=== PATIENT | male | born 1945 | race Hispanic/Latino ===

== ENCOUNTER 2017-11-19 00:01 | Emergency (ER) | payer MEDICARE ==
[~2017-11-19] VITALS: Ht 165.1 cm; Wt 114.8 kg
[~2017-11-19 00:01] MED LIST: GLIPIZIDE5 MG PO; LOSARTAN POTASS25 MG PO; METFORMIN HCL500 MG PO; METOPROLOL SUCC25 MG PO; NITROSTAT0.4 MG SL; SIMVASTATIN40 MG PO
[2017-11-19 00:40] LABS: BASOPHILS % 0.3 % (0.0-1.0); EOSINOPHILS # (AUTO) 0.4 (0.0-0.4); EOSINOPHILS % 3.6 % (0.0-6.0); HEMATOCRIT 43.8 % (38.2-49.6); HEMOGLOBIN 15.3 g/dL (14.0-18.0); LYMPHOCYTES # (AUTO) 1.7 (1.0-3.2); LYMPHOCYTES % 17.9 % (18.0-39.1); MEAN CORPUSCULAR HEMOGLOBIN 30.1 pg (28-32); MEAN CORPUSCULAR HGB CONC 34.9 g/dL (31-35); MEAN CORPUSCULAR VOLUME 86.1 fL (81-99); MONOCYTES % 10.2 % (4.4-11.3); NEUTROPHILS # (AUTO) 6.6 (2.1-6.9); NEUTROPHILS % 67.5 % (38.7-80.0); PLATELET COUNT 222 x10e3/uL (140-360); RED BLOOD COUNT 5.09 x10e6/uL (4.3-5.7); RED CELL DISTRIBUTION WIDTH 12.7 % (11.7-14.4)
[2017-11-19 00:47] LABS: CLARITY,URINE CLEAR (CLEAR); COLOR,URINE YELLOW (YELLOW)
[2017-11-19 00:48] LABS: BILIRUBIN,URINE NEGATIVE (NEGATIVE); KETONES,URINE NEGATIVE (NEGATIVE); LEUKOCYTE ESTERASE ,URINE NEGATIVE (NEGATIVE); NITRITE,URINE NEGATIVE (NEGATIVE); PROTEIN,URINE DIPSTICK TRACE (NEGATIVE); URINE UROBILINOGEN 0.2 mg/dL (0.2 - 1)
[2017-11-19 00:55] LABS: BACTERIA,URINE RARE /HPF; EPITHELIAL CELLS,URINE RARE /LPF; WBC,URINE (MAN) 0-5 /HPF (0-5)
[2017-11-19 01:04] LABS: ALANINE AMINOTRANSFERASE 19 IU/L (0-55); ALBUMIN 3.5 g/dL (3.5-5.0); BLOOD UREA NITROGEN 14 mg/dL (7-26); BUN/CREATININE RATIO 16 (6-25); CALCIUM 9.9 mg/dL (8.4-10.2); CARBON DIOXIDE 25 mmol/L (22-29); EST GLOMERULAR FILTRATION RATE > 60 ML/MIN (60-); GLUCOSE 305 mg/dL (74-118)
--- NOTE | 2017-11-19 01:06 | Diagnostic Imaging Report ---
EXAM: CHEST SINGLE (PORTABLE), AP 1 view INDICATION: Weakness, pain in arms and COMPARISON: None FINDINGS: LINES/TUBES: None LUNGS: Nonspecific interstitial thickening and bibasilar atelectasis. PLEURA: No effusions or pneumothorax. HEART AND MEDIASTINUM: Normal size and contour. BONES AND SOFT TISSUES: No acute findings. IMPRESSION: Nonspecific interstitial thickening and bibasilar atelectasis. Signed by: Dr. Aniya Kelly M.D. on 11/19/2017 1:02 AM
[2017-11-19 01:20] LABS: ANION GAP 14.9 mmol/L (8-16); CHLORIDE 102 mmol/L (98-107); POTASSIUM 3.9 mmol/L (3.5-5.1); SODIUM 138 mmol/L (136-145)
[2017-11-19 01:56] VITALS: BP 105/79
[2017-11-19 02:16] LABS: ALKALINE PHOSPHATASE 85 IU/L (40-150); CREATINE KINASE 73 IU/L (30-200)
== END 2017-11-19 02:09 | disposition home or self-care (01) ==
LOC: ER 00:01
DX: R53.1 Weakness (principal); R73.9 Hyperglycemia, unspecified; F41.9 Anxiety disorder, unspecified; E78.00 Pure hypercholesterolemia, unspecified
CPT/HCPCS: 36415; 71045; 80053; 81001; 82550; 82553; 84484; 85025; 93005; 99284

== ENCOUNTER 2020-04-06 15:21 | Inpatient (IN) | payer MEDICARE ==
[~2020-04-06] VITALS: Ht 162.6 cm; Wt 114.8 kg
[2020-04-06] MEDS ORDERED: LACTATED RINGER'S 1,000 ML INJ ONE ×2 (16:00)
[2020-04-06 16:32] LABS: BASOPHILS % 0.2 % (0.0-1.0); EOSINOPHILS # (AUTO) 0.1 (0.0-0.4); EOSINOPHILS % 1.3 % (0.0-6.0); HEMATOCRIT 37.1 % (38.2-49.6); HEMOGLOBIN 11.8 g/dL (14.0-18.0); LYMPHOCYTES # (AUTO) 0.7 (1.0-3.2); LYMPHOCYTES % 7.5 % (18.0-39.1); MEAN CORPUSCULAR HGB CONC 31.8 g/dL (31-35); MEAN CORPUSCULAR VOLUME 84.9 fL (81-99); MONOCYTES # (AUTO) 0.8 (0.2-0.8); MONOCYTES % 9.3 % (4.4-11.3); NEUTROPHILS # (AUTO) 7.4 (2.1-6.9); NEUTROPHILS % 81.4 % (38.7-80.0); PLATELET COUNT 370 x10e3/uL (140-360); RED BLOOD COUNT 4.37 x10e6/uL (4.3-5.7); RED CELL DISTRIBUTION WIDTH 15.3 % (11.7-14.4)
[2020-04-06 16:49] LABS: ALBUMIN 2.8 g/dL (3.5-5.0); ALBUMIN/GLOBULIN RATIO 0.6 (0.8-2.0); ANION GAP 14.4 mmol/L (8-16); CALCIUM 8.8 mg/dL (8.4-10.2); CREATININE, SERUM 1.42 mg/dL (0.72-1.25); POTASSIUM 4.4 mmol/L (3.5-5.1)
[2020-04-06 17:13] LABS: CLARITY,URINE SL CLOUDY (CLEAR); COLOR,URINE YELLOW (YELLOW); LEUKOCYTE ESTERASE ,URINE NEGATIVE (NEGATIVE); NITRITE,URINE NEGATIVE (NEGATIVE); PROTEIN,URINE DIPSTICK >=300 (NEGATIVE)
[2020-04-06 17:14] LABS: KETONES,URINE TRACE (NEGATIVE)
[2020-04-06 17:22] LABS: AMORPHOUS SEDIMENT,URINE MODERATE (FEW); BACTERIA,URINE FEW /HPF; EPITHELIAL CELLS,URINE FEW /LPF
[2020-04-06] MEDS ORDERED: CEFEPIME HCL 1 GM VIAL IV STA (20:17)
[2020-04-06 21:30] VITALS: BP 105/77
[2020-04-06 23:14] VITALS: BP 105/77
[2020-04-07] VITALS (8 sets, daily range): BP systolic 87–144; BP diastolic 59–126
[2020-04-07 05:42] LABS: CREATINE KINASE MB 1.8 ng/mL (0-5.0)
[2020-04-07] MEDS ORDERED: DOCUSATE SODIUM 100 MG CAP PO PRN (06:30)
[2020-04-07] MEDS ORDERED: ACETAMINOPHEN 325 MG TAB PO PRN (06:30)
[2020-04-07] MEDS ORDERED: ZOLPIDEM TARTRATE 5 MG TAB PO PRN (06:30)
[2020-04-07] MEDS ORDERED: DEXTROSE 50% SYRINGE 50 ML IV PRN (06:30)
[2020-04-07] MEDS ORDERED: ONDANSETRON HCL INJ 2MG/ML 2ML 2 MG/ML VIAL IV PRN (06:30)
[2020-04-07 07:17] LABS: CHOL/HDL RATIO 2.9 (3.9-4.7)
[2020-04-07] MEDS: INSULIN REGULAR, HUMAN 100 UNIT/1 ML 3ML VIAL SQ SCH ×4 (07:30→20:42)
[2020-04-07] MEDS: FAMOTIDINE 20 MG TAB PO SCH ×2 (08:04→15:45)
[2020-04-07] MEDS: BENZONATATE 100 MG CAP PO SCH ×3 (08:06→19:54)
[2020-04-07] MEDS: METOPROLOL SUCCINATE 25 MG TAB XL PO SCH (08:08)
[2020-04-07] MEDS ORDERED: CEFEPIME 1GM/NS 0.9% 50 ML 50 ML IV SCH (09:00)
[2020-04-07] MEDS: METHYLPREDNISOLONE SOD SUCC 40 MG/ML VIAL 1ML IV SCH ×2 (09:58→19:54)
[2020-04-07] MEDS: LORATADINE 10 MG TAB PO SCH (09:58)
[2020-04-07] MEDS: ZINC SULFATE 220 MG CAP PO SCH (09:58)
[2020-04-07] MEDS: ENOXAPARIN SOD INJ 40 MG/0.4 ML SYR SC SCH (09:58)
[2020-04-07] MEDS: ASCORBIC ACID 500 MG TAB PO SCH ×2 (09:58→17:17)
[2020-04-07] MEDS ORDERED: CEFTRIAXONE SOD 2 GM/NS 100 ML 100 ML IV SCH (11:00)
[2020-04-07 14:20] LABS: CREATINE KINASE 62 IU/L (30-200)
[2020-04-07] MEDS: GUAIFENESIN/DEXTROMETHORPHAN LIQD 5 ML UDC NG SCH ×2 (14:51→19:54)
[2020-04-07] MEDS: CEFTRIAXONE SOD 2 GM/NS 100 ML 100 ML IV SCH (15:45)
[2020-04-07] MEDS ORDERED: ENOXAPARIN SOD INJ 40 MG/0.4 ML SYR SC SCH (17:00)
[2020-04-07] MEDS: SIMVASTATIN 40 MG TAB PO SCH (19:54)
[2020-04-08] VITALS (8 sets, daily range): BP systolic 90–109; BP diastolic 55–78
[2020-04-08 05:19] LABS: BASOPHILS % 0.2 % (0.0-1.0); HEMATOCRIT 31.8 % (38.2-49.6); HEMOGLOBIN 10.3 g/dL (14.0-18.0); LYMPHOCYTES # (AUTO) 0.5 (1.0-3.2); LYMPHOCYTES % 5.2 % (18.0-39.1); MEAN CORPUSCULAR HEMOGLOBIN 26.6 pg (28-32); MEAN CORPUSCULAR HGB CONC 32.4 g/dL (31-35); MEAN CORPUSCULAR VOLUME 82.2 fL (81-99); MONOCYTES # (AUTO) 0.2 (0.2-0.8); MONOCYTES % 2.6 % (4.4-11.3); NEUTROPHILS # (AUTO) 7.9 (2.1-6.9); NEUTROPHILS % 91.5 % (38.7-80.0); PLATELET COUNT 314 x10e3/uL (140-360); RED BLOOD COUNT 3.87 x10e6/uL (4.3-5.7)
[2020-04-08 05:52] LABS: ALANINE AMINOTRANSFERASE 10 IU/L (0-55); ALBUMIN 2.4 g/dL (3.5-5.0); ALBUMIN/GLOBULIN RATIO 0.6 (0.8-2.0); ALKALINE PHOSPHATASE 82 IU/L (40-150); BLOOD UREA NITROGEN 25 mg/dL (7-26); BUN/CREATININE RATIO 22 (6-25); CALCIUM 8.3 mg/dL (8.4-10.2); CARBON DIOXIDE 24 mmol/L (22-29); CHLORIDE 101 mmol/L (98-107); CREATININE, SERUM 1.14 mg/dL (0.72-1.25); EST GLOMERULAR FILTRATION RATE > 60 ML/MIN (60-); GLUCOSE 147 mg/dL (74-118); SODIUM 135 mmol/L (136-145)
[2020-04-08] MEDS: METOPROLOL SUCCINATE 25 MG TAB XL PO SCH (07:23)
[2020-04-08] MEDS: GUAIFENESIN/DEXTROMETHORPHAN LIQD 5 ML UDC NG SCH ×3 (07:24→22:00)
[2020-04-08] MEDS: INSULIN REGULAR, HUMAN 100 UNIT/1 ML 3ML VIAL SQ SCH ×4 (07:52→20:16)
[2020-04-08 07:57] LABS: BAND NEUTROPHILS % (MANUAL) 2 %; LYMPHOCYTES % (MANUAL) 5 % (19-48); MONOCYTES % (MANUAL) 4 % (3.4-9.0); NEUTROPHILS % (MANUAL) 89 % (40-74)
[2020-04-08 07:58] LABS: SCHISTOCYTES FEW
[2020-04-08 07:59] LABS: ELLIPTOCYTE, RBC FEW; PLATELET ESTIMATE ADEQUATE; PLATELET MORPHOLOGY COMMENT NORMAL; RBC MORPHOLOGY COMMENT ABNORMAL
[2020-04-08] MEDS: BENZONATATE 100 MG CAP PO SCH ×3 (08:30→20:14)
[2020-04-08] MEDS: ASCORBIC ACID 500 MG TAB PO SCH ×2 (08:30→16:46)
[2020-04-08] MEDS: METHYLPREDNISOLONE SOD SUCC 40 MG/ML VIAL 1ML IV SCH ×2 (08:30→20:13)
[2020-04-08] MEDS: ENOXAPARIN SOD INJ 40 MG/0.4 ML SYR SC SCH (08:30)
[2020-04-08] MEDS: LORATADINE 10 MG TAB PO SCH (08:30)
[2020-04-08] MEDS: FAMOTIDINE 20 MG TAB PO SCH ×2 (08:30→16:46)
[2020-04-08] MEDS: ZINC SULFATE 220 MG CAP PO SCH (08:30)
[2020-04-08] MEDS: CEFTRIAXONE SOD 2 GM/NS 100 ML 100 ML IV SCH (16:46)
[2020-04-08] MEDS: SIMVASTATIN 40 MG TAB PO SCH (20:14)
[2020-04-09] VITALS: BP 108/70
[2020-04-09 04:00] VITALS: BP 106/66
[2020-04-09] MEDS: GUAIFENESIN/DEXTROMETHORPHAN LIQD 5 ML UDC NG SCH (06:00)
[2020-04-09] MEDS: INSULIN REGULAR, HUMAN 100 UNIT/1 ML 3ML VIAL SQ SCH (07:51)
[2020-04-09 08:00] VITALS: BP 114/79
[2020-04-09] MEDS: LORATADINE 10 MG TAB PO SCH (08:06)
[2020-04-09] MEDS: FAMOTIDINE 20 MG TAB PO SCH (08:06)
[2020-04-09] MEDS: ZINC SULFATE 220 MG CAP PO SCH (08:06)
[2020-04-09] MEDS: ENOXAPARIN SOD INJ 40 MG/0.4 ML SYR SC SCH (08:06)
[2020-04-09] MEDS: METOPROLOL SUCCINATE 25 MG TAB XL PO SCH (08:06)
[2020-04-09] MEDS: BENZONATATE 100 MG CAP PO SCH (08:06)
[2020-04-09] MEDS: ASCORBIC ACID 500 MG TAB PO SCH (08:06)
[2020-04-09] MEDS: METHYLPREDNISOLONE SOD SUCC 40 MG/ML VIAL 1ML IV SCH (08:06)
[2020-04-09 08:54] VITALS: BP 114/68
[2020-04-09] MEDS ORDERED: Guaifenesin/Dextromethorphan NG (09:42)
[2020-04-09] MEDS ORDERED: TESSALON PERLE100 MG PO (09:42)
[2020-04-09] MEDS ORDERED: ZINC SULFATE220 M1 PO (09:42)
[2020-04-09] MEDS ORDERED: LORATADINE10 MG PO (09:42)
[2020-04-09] MEDS ORDERED: KEFLEX500 MG PO (09:42)
[2020-04-09] MEDS ORDERED: ASCORBIC ACID500 MG PO (09:42)
[2020-04-09] MEDS ORDERED: FAMOTIDINE20 MG PO (09:42)
[2020-04-09] MEDS ORDERED: PREDNISONE20 MG PO (09:42)
== END 2020-04-09 10:50 | disposition home or self-care (01) | DRG 177 ==
LOC: ER 15:31 → ERHOLD 20:43 → IMCU 22:06
PROVIDERS: ADMIT Internal Medicine; ATTEND Internal Medicine
DX: U07.1 COVID-19 (principal); J12.89 Other viral pneumonia; J15.9 Unspecified bacterial pneumonia; J96.01 Acute respiratory failure with hypoxia; N17.9 Acute kidney failure, unspecified; Z68.41 Body mass index [BMI] 40.0-44.9, adult; F41.9 Anxiety disorder, unspecified; E78.5 Hyperlipidemia, unspecified; Z88.1 Allergy status to other antibiotic agents; Z88.8 Allergy status to other drugs, medicaments and biological substances; E66.01 Morbid (severe) obesity due to excess calories; E11.9 Type 2 diabetes mellitus without complications; N18.9 Chronic kidney disease, unspecified
CPT/HCPCS: 36415; 71045; 71260; 80053; 80061; 81001; 82550; 82553; 83036; 83605; 83880; 84484; 85025; 85379; 87040; 87086; 93005; 99251; 99285; J0692; J0696; J1650; J2920; U0002

== ENCOUNTER 2021-04-03 17:28 | Inpatient (IN) | payer MEDICARE ==
[~2021-04-03] VITALS: Ht 162.6 cm; Wt 114.8 kg
[~2021-04-03 17:28] MED LIST changes: +ASCORBIC ACID500 MG PO; +FAMOTIDINE20 MG PO; +Guaifenesin/Dextromethorphan NG; +KEFLEX500 MG PO; +LORATADINE10 MG PO; +PREDNISONE20 MG PO; +TESSALON PERLE100 MG PO; +ZINC SULFATE220 M1 PO
[2021-04-03 17:53] LABS: BASOPHILS % 0.5 % (0.0-1.0); EOSINOPHILS # (AUTO) 0.4 (0.0-0.4); EOSINOPHILS % 6.2 % (0.0-6.0); LYMPHOCYTES # (AUTO) 0.9 (1.0-3.2); LYMPHOCYTES % 14.4 % (18.0-39.1); MEAN CORPUSCULAR HEMOGLOBIN 19.1 pg (28-32); MEAN CORPUSCULAR VOLUME 70.8 fL (81-99); MONOCYTES # (AUTO) 0.7 (0.2-0.8); MONOCYTES % 10.8 % (4.4-11.3); NEUTROPHILS # (AUTO) 4.3 (2.1-6.9); NEUTROPHILS % 67.8 % (38.7-80.0); PLATELET COUNT 311 x10e3/uL (140-360); RED BLOOD COUNT 3.25 x10e6/uL (4.3-5.7)
[2021-04-03 18:00] LABS: HEMOGLOBIN 6.2 g/dL (14.0-18.0)
[2021-04-03 18:08] LABS: INR 1.06; PARTIAL THROMBOPLASTIN TIME 31.4 seconds (23.8-35.5); PROTHROMBIN TIME 14.7 seconds (11.9-14.5)
[2021-04-03 18:15] LABS: ALBUMIN 3.4 g/dL (3.5-5.0); ALBUMIN/GLOBULIN RATIO 0.9 (0.8-2.0); ANION GAP 12.9 mmol/L (8-16); CREATININE, SERUM 1.37 mg/dL (0.72-1.25); POTASSIUM 3.9 mmol/L (3.5-5.1)
[2021-04-03] MEDS ORDERED: SODIUM CHLORIDE 0.9% 250ML 250 ML IV ONE (18:15)
[2021-04-03 18:21] LABS: CREATINE KINASE MB 4.4 ng/mL (0-5.0)
[2021-04-03 18:38] LABS: ANISOCYTOSIS SLIGHT; HYPOCHROMASIA SLIGHT; MICROCYTOSIS SLIGHT; PLATELET ESTIMATE ADEQUATE; PLATELET MORPHOLOGY COMMENT NORMAL
[2021-04-03] MEDS ORDERED: SODIUM CHLORIDE 0.9% 1000ML 1,000 ML IV STA (18:55)
[2021-04-03] MEDS ORDERED: SODIUM CHLORIDE 0.9% 100 ML ONE (19:19)
[2021-04-03] MEDS ORDERED: IOPAMIDOL 370 MG/ML 200 ML INFUS..BTL INJ ONE (19:19)
[2021-04-03 20:00] VITALS: BP 125/71
[2021-04-03 21:00] VITALS: BP 125/71
[2021-04-03] MEDS ORDERED: SODIUM CHLORIDE 0.9% 250ML 250 ML ONE (23:03)
[2021-04-04] MEDS ORDERED: ALBUTEROL/IPRATROPIUM 3 ML NEB NEB PRN (01:00)
[2021-04-04] MEDS ORDERED: HYDRALAZINE HCL 20 MG/ML VIAL IV PRN (01:00)
[2021-04-04] MEDS ORDERED: DIPHENHYDRAMINE HCL 25 MG CAP PO PRN (01:00)
[2021-04-04] MEDS ORDERED: DEXTROSE 50% SYRINGE 50 ML IV PRN (01:00)
[2021-04-04] MEDS ORDERED: ONDANSETRON HCL INJ 2MG/ML 2ML 2 MG/ML VIAL IV PRN (01:00)
[2021-04-04] MEDS ORDERED: DOCUSATE SODIUM 100 MG CAP PO PRN (01:00)
[2021-04-04] MEDS ORDERED: SIMETHICONE 80 MG CHEW PO PRN (01:00)
[2021-04-04] MEDS ORDERED: BENZONATATE 100 MG CAP PO PRN (01:00)
[2021-04-04] MEDS ORDERED: POTASSIUM CHLORIDE 20 MEQ TAB CR PO PRN (01:00)
[2021-04-04] MEDS ORDERED: MELATONIN 5 MG TABLET PO PRN (01:00)
[2021-04-04 04:00] VITALS: BP 131/71
[2021-04-04 06:26] LABS: % IRON SATURATION 4 % (15-50); IRON 23 ug/dL (65-175); TOTAL IRON BINDING CAPACITY 518 ug/dL (261-478); TRANSFERRIN 370 mg/dL (174-364)
[2021-04-04 06:38] LABS: BASOPHILS # (AUTO) 0.1 (0.0-0.1); BASOPHILS % 0.7 % (0.0-1.0); EOSINOPHILS # (AUTO) 0.5 (0.0-0.4); EOSINOPHILS % 6.6 % (0.0-6.0); HEMATOCRIT 29.7 % (38.2-49.6); LYMPHOCYTES # (AUTO) 1.1 (1.0-3.2); LYMPHOCYTES % 14.2 % (18.0-39.1); MEAN CORPUSCULAR HEMOGLOBIN 21.2 pg (28-32); MEAN CORPUSCULAR HGB CONC 26.9 g/dL (31-35); MEAN CORPUSCULAR VOLUME 78.6 fL (81-99); MONOCYTES # (AUTO) 0.8 (0.2-0.8); MONOCYTES % 10.6 % (4.4-11.3); NEUTROPHILS # (AUTO) 5.1 (2.1-6.9); NEUTROPHILS % 67.6 % (38.7-80.0); PLATELET COUNT 301 x10e3/uL (140-360); RED BLOOD COUNT 3.78 x10e6/uL (4.3-5.7); RED CELL DISTRIBUTION WIDTH 21.3 % (11.7-14.4)
[2021-04-04 06:56] LABS: CALCIUM 9.2 mg/dL (8.4-10.2); CREATININE, SERUM 1.24 mg/dL (0.72-1.25)
[2021-04-04 06:57] LABS: ALBUMIN 3.3 g/dL (3.5-5.0); ALBUMIN/GLOBULIN RATIO 0.9 (0.8-2.0); CHOL/HDL RATIO 2.2 (3.9-4.7)
[2021-04-04 07:16] LABS: THYROID STIMULATING HORMONE 1.186 uIU/mL (0.350-4.940)
[2021-04-04] MEDS: PANTOPRAZOLE SOD 40 MG TABEC PO SCH (07:30)
[2021-04-04 07:40] VITALS: BP 137/76
[2021-04-04 07:52] VITALS: BP 137/76
[2021-04-04] MEDS: LOSARTAN POTASSIUM 25 MG TAB PO SCH (09:15)
[2021-04-04] MEDS: SIMVASTATIN 40 MG TAB PO SCH (09:16)
[2021-04-04] MEDS: METOPROLOL SUCCINATE 25 MG TAB XL PO SCH (09:16)
[2021-04-04 11:32] VITALS: BP 131/67
[2021-04-04 12:20] LABS: HEMATOCRIT 27.6 % (38.2-49.6); HEMOGLOBIN 7.9 g/dL (14.0-18.0)
[2021-04-04] MEDS ORDERED: CYANOCOBALAMIN INJ 1,000 MCG/ML VIAL IM SCH (15:15)
[2021-04-04 16:17] VITALS: BP 118/65
[2021-04-04 17:42] LABS: HEMATOCRIT 29.2 % (38.2-49.6); HEMOGLOBIN 8.5 g/dL (14.0-18.0)
[2021-04-04 20:00] VITALS: BP 115/70
[2021-04-04] MEDS: ACETAMINOPHEN 325 MG TAB PO PRN (21:39)
[2021-04-05] VITALS (8 sets, daily range): BP systolic 99–125; BP diastolic 59–85
[2021-04-05 05:14] LABS: BASOPHILS % 0.3 % (0.0-1.0); EOSINOPHILS # (AUTO) 0.6 (0.0-0.4); EOSINOPHILS % 6.8 % (0.0-6.0); HEMATOCRIT 27.9 % (38.2-49.6); HEMOGLOBIN 8.2 g/dL (14.0-18.0); LYMPHOCYTES # (AUTO) 1.2 (1.0-3.2); LYMPHOCYTES % 12.4 % (18.0-39.1); MEAN CORPUSCULAR HGB CONC 29.4 g/dL (31-35); MEAN CORPUSCULAR VOLUME 71.5 fL (81-99); MONOCYTES % 11.2 % (4.4-11.3); NEUTROPHILS # (AUTO) 6.4 (2.1-6.9); NEUTROPHILS % 68.9 % (38.7-80.0); PLATELET COUNT 322 x10e3/uL (140-360); RED CELL DISTRIBUTION WIDTH 20.8 % (11.7-14.4)
[2021-04-05 05:35] LABS: ANION GAP 11.6 mmol/L (8-16); CALCIUM 9.2 mg/dL (8.4-10.2); CREATININE, SERUM 1.13 mg/dL (0.72-1.25); POTASSIUM 3.6 mmol/L (3.5-5.1)
[2021-04-05 07:26] LABS: ANISOCYTOSIS MODERATE; HYPOCHROMASIA MODERATE; MICROCYTOSIS MODERATE; PLATELET ESTIMATE ADEQUATE; PLATELET MORPHOLOGY COMMENT NORMAL; POLYCHROMASIA FEW; RBC MORPHOLOGY COMMENT ABNORMAL
[2021-04-05 07:27] LABS: ELLIPTOCYTE, RBC SLIGHT; OVALOCYTES FEW
[2021-04-05] MEDS: METOPROLOL SUCCINATE 25 MG TAB XL PO SCH (09:00)
[2021-04-05] MEDS: LOSARTAN POTASSIUM 25 MG TAB PO SCH (09:00)
[2021-04-05] MEDS: SIMVASTATIN 40 MG TAB PO SCH (09:01)
[2021-04-05] MEDS: PANTOPRAZOLE SOD 40 MG TABEC PO SCH (09:01)
[2021-04-05] MEDS: IRON SUCROSE 100 MG in SODIUM CHLORIDE 0.9% 100 ML 100 ML IV SCH (09:01)
[2021-04-05 12:04] LABS: HEMATOCRIT 29.4 % (38.2-49.6); HEMOGLOBIN 8.6 g/dL (14.0-18.0)
[2021-04-05] MEDS ORDERED: BISACODYL 5 MG TAB EC PO ONE (13:45)
[2021-04-05] MEDS ORDERED: BISACODYL 5 MG TAB EC PO SCH ×3 (14:00→17:30)
[2021-04-05 18:44] LABS: HEMATOCRIT 32.5 % (38.2-49.6); HEMOGLOBIN 9.3 g/dL (14.0-18.0)
[2021-04-05] MEDS ORDERED: CITRATE OF MAGNESIA 300ML BOTTLE PO ONE ×2 (19:00→23:00)
[2021-04-06] VITALS (8 sets, daily range): BP systolic 92–119; BP diastolic 61–71
[2021-04-06 05:03] LABS: BASOPHILS % 0.4 % (0.0-1.0); EOSINOPHILS # (AUTO) 0.5 (0.0-0.4); EOSINOPHILS % 5.6 % (0.0-6.0); HEMATOCRIT 31.9 % (38.2-49.6); HEMOGLOBIN 9.3 g/dL (14.0-18.0); LYMPHOCYTES # (AUTO) 1.1 (1.0-3.2); LYMPHOCYTES % 11.2 % (18.0-39.1); MEAN CORPUSCULAR HEMOGLOBIN 20.8 pg (28-32); MEAN CORPUSCULAR HGB CONC 29.2 g/dL (31-35); MEAN CORPUSCULAR VOLUME 71.4 fL (81-99); MONOCYTES # (AUTO) 1.1 (0.2-0.8); MONOCYTES % 12.1 % (4.4-11.3); NEUTROPHILS # (AUTO) 6.6 (2.1-6.9); NEUTROPHILS % 70.3 % (38.7-80.0); PLATELET COUNT 381 x10e3/uL (140-360); RED BLOOD COUNT 4.47 x10e6/uL (4.3-5.7); RED CELL DISTRIBUTION WIDTH 21.5 % (11.7-14.4)
[2021-04-06 05:30] LABS: ANION GAP 16.5 mmol/L (8-16); CALCIUM 9.7 mg/dL (8.4-10.2); CREATININE, SERUM 1.29 mg/dL (0.72-1.25); POTASSIUM 3.5 mmol/L (3.5-5.1)
[2021-04-06] MEDS: PANTOPRAZOLE SOD 40 MG TABEC PO SCH (07:30)
[2021-04-06] MEDS: LOSARTAN POTASSIUM 25 MG TAB PO SCH (08:57)
[2021-04-06] MEDS: SIMVASTATIN 40 MG TAB PO SCH (08:58)
[2021-04-06] MEDS: IRON SUCROSE 100 MG in SODIUM CHLORIDE 0.9% 100 ML 100 ML IV SCH (08:58)
[2021-04-06] MEDS: METOPROLOL SUCCINATE 25 MG TAB XL PO SCH (08:58)
[2021-04-06 10:26] LABS: ANISOCYTOSIS MODERATE; HYPOCHROMASIA MODERATE; MICROCYTOSIS MODERATE; OVALOCYTES FEW; PLATELET ESTIMATE ADEQUATE; PLATELET MORPHOLOGY COMMENT NORMAL; RBC MORPHOLOGY COMMENT ABNORMAL
[2021-04-06 11:50] LABS: HEMATOCRIT 31.9 % (38.2-49.6); HEMOGLOBIN 9.2 g/dL (14.0-18.0)
[2021-04-06] MEDS ORDERED: HYOSCYAMINE SULFATE 0.5 MG/ML INJ ONE (14:58)
[2021-04-06] MEDS ORDERED: BISACODYL 5 MG TAB EC PO SCH (17:30)
[2021-04-06 18:37] LABS: HEMATOCRIT 30.9 % (38.2-49.6); HEMOGLOBIN 8.8 g/dL (14.0-18.0)
[2021-04-06] MEDS ORDERED: PROPOFOL IV EMULSION 10 MG/ML 20 ML VIAL ONE (19:38)
[2021-04-06] MEDS ORDERED: POVIDONE IODINE 0.05% 0.05 % ML PO ONE (19:38)
[2021-04-06] MEDS: TRAMADOL HCL 50 MG TAB PO PRN (21:35)
[2021-04-07] VITALS (8 sets, daily range): BP systolic 105–135; BP diastolic 59–77
[2021-04-07] MEDS: TRAMADOL HCL 50 MG TAB PO PRN ×2 (03:59→15:26)
[2021-04-07 05:06] LABS: BASOPHILS % 0.3 % (0.0-1.0); EOSINOPHILS % 0.2 % (0.0-6.0); HEMATOCRIT 29.3 % (38.2-49.6); HEMOGLOBIN 8.5 g/dL (14.0-18.0); LYMPHOCYTES # (AUTO) 0.5 (1.0-3.2); LYMPHOCYTES % 3.8 % (18.0-39.1); MEAN CORPUSCULAR VOLUME 72.3 fL (81-99); MONOCYTES # (AUTO) 1.5 (0.2-0.8); MONOCYTES % 10.9 % (4.4-11.3); NEUTROPHILS % 84.4 % (38.7-80.0); PLATELET COUNT 340 x10e3/uL (140-360); RED BLOOD COUNT 4.05 x10e6/uL (4.3-5.7); RED CELL DISTRIBUTION WIDTH 22.2 % (11.7-14.4)
[2021-04-07 05:28] LABS: ANION GAP 13.6 mmol/L (8-16); CREATININE, SERUM 1.29 mg/dL (0.72-1.25); POTASSIUM 3.6 mmol/L (3.5-5.1)
[2021-04-07] MEDS: LOSARTAN POTASSIUM 25 MG TAB PO SCH (08:53)
[2021-04-07] MEDS: METOPROLOL SUCCINATE 25 MG TAB XL PO SCH (08:53)
[2021-04-07] MEDS: SIMVASTATIN 40 MG TAB PO SCH (08:53)
[2021-04-07] MEDS: PANTOPRAZOLE SOD 40 MG TABEC PO SCH (08:53)
[2021-04-07] MEDS: IRON SUCROSE 100 MG in SODIUM CHLORIDE 0.9% 100 ML 100 ML IV SCH (09:01)
[2021-04-07] MEDS ORDERED: IOPAMIDOL 300MG/ML 100 ML INFUS..BTL IV ONE (11:07)
[2021-04-07] MEDS ORDERED: SODIUM CHLORIDE 0.9% 500ML 500 ML ONE ×2 (11:08→11:45)
[2021-04-07] MEDS ORDERED: LIDOCAINE HCL 1% LOCAL INJ 20 ML VIAL ONE (11:08)
[2021-04-07] MEDS ORDERED: MIDAZOLAM HCL 2 MG/2 ML VIAL ONE (11:26)
[2021-04-07] MEDS ORDERED: FENTANYL CITRATE/PF 100MCG/2 ML INJ ONE (11:27)
[2021-04-07] MEDS ORDERED: LIDOCAINE HCL 2% LOCAL 20 ML VIAL ONE (11:27)
[2021-04-08] VITALS (7 sets, daily range): BP systolic 102–120; BP diastolic 59–64
[2021-04-08] MEDS: ACETAMINOPHEN 325 MG TAB PO PRN (03:52)
[2021-04-08 05:46] LABS: BASOPHILS % 0.2 % (0.0-1.0); EOSINOPHILS % 0.2 % (0.0-6.0); HEMATOCRIT 27.8 % (38.2-49.6); HEMOGLOBIN 8.2 g/dL (14.0-18.0); LYMPHOCYTES # (AUTO) 0.6 (1.0-3.2); LYMPHOCYTES % 3.8 % (18.0-39.1); MEAN CORPUSCULAR HEMOGLOBIN 21.4 pg (28-32); MEAN CORPUSCULAR HGB CONC 29.5 g/dL (31-35); MEAN CORPUSCULAR VOLUME 72.6 fL (81-99); MONOCYTES # (AUTO) 2.6 (0.2-0.8); MONOCYTES % 15.3 % (4.4-11.3); NEUTROPHILS # (AUTO) 13.2 (2.1-6.9); NEUTROPHILS % 79.1 % (38.7-80.0); PLATELET COUNT 327 x10e3/uL (140-360); RED BLOOD COUNT 3.83 x10e6/uL (4.3-5.7)
[2021-04-08 06:05] LABS: POTASSIUM 3.4 mmol/L (3.5-5.1)
[2021-04-08 06:06] LABS: ANION GAP 14.4 mmol/L (8-16); CALCIUM 8.9 mg/dL (8.4-10.2); CREATININE, SERUM 1.2 mg/dL (0.72-1.25)
[2021-04-08] MEDS: TRAMADOL HCL 50 MG TAB PO PRN ×2 (08:47→15:47)
[2021-04-08] MEDS: PANTOPRAZOLE SOD 40 MG TABEC PO SCH (08:49)
[2021-04-08] MEDS: LIDOCAINE 4% PATCH TP PRN (08:50)
[2021-04-08] MEDS: SIMVASTATIN 40 MG TAB PO SCH (08:50)
[2021-04-08] MEDS: LOSARTAN POTASSIUM 25 MG TAB PO SCH (08:50)
[2021-04-08] MEDS: METOPROLOL SUCCINATE 25 MG TAB XL PO SCH (08:50)
[2021-04-08] MEDS: IRON SUCROSE 100 MG in SODIUM CHLORIDE 0.9% 100 ML 100 ML IV SCH (11:01)
[2021-04-08 17:38] LABS: BASOPHILS % 0.1 % (0.0-1.0); EOSINOPHILS % 0.1 % (0.0-6.0); HEMOGLOBIN 8.5 g/dL (14.0-18.0); LYMPHOCYTES # (AUTO) 0.4 (1.0-3.2); LYMPHOCYTES % 2.3 % (18.0-39.1); MEAN CORPUSCULAR HGB CONC 28.3 g/dL (31-35); MEAN CORPUSCULAR VOLUME 74.1 fL (81-99); MONOCYTES # (AUTO) 2.3 (0.2-0.8); MONOCYTES % 12.5 % (4.4-11.3); NEUTROPHILS # (AUTO) 15.2 (2.1-6.9); NEUTROPHILS % 84.4 % (38.7-80.0); PLATELET COUNT 311 x10e3/uL (140-360); RED BLOOD COUNT 4.05 x10e6/uL (4.3-5.7); RED CELL DISTRIBUTION WIDTH 23.9 % (11.7-14.4)
[2021-04-08] MEDS: PIPERACILLIN/TAZOBACTAM 3.375 GM in SODIUM CHLORIDE 0.9% 50ML 50 ML IV SCH ×2 (18:19→22:44)
[2021-04-08] MEDS ORDERED: SODIUM CHLORIDE 0.9% 250ML 250 ML ONE (18:26)
[2021-04-08] MEDS ORDERED: POTASSIUM CHLORIDE 20 MEQ TAB CR PO STA (18:39)
[2021-04-08] MEDS ORDERED: KETOROLAC TROMETHAMINE 30 MG/ML VIAL IV ONE (18:45)
[2021-04-08] MEDS ORDERED: Vancomycin IV 1 GM in SODIUM CHLORIDE 0.9% 250ML 250 ML IV ONE (19:00)
[2021-04-09] VITALS (10 sets, daily range): BP systolic 98–118; BP diastolic 53–67
[2021-04-09] MEDS: PIPERACILLIN/TAZOBACTAM 3.375 GM in SODIUM CHLORIDE 0.9% 50ML 50 ML IV SCH ×2 (06:20→14:24)
[2021-04-09 06:23] LABS: BASOPHILS % 0.2 % (0.0-1.0); EOSINOPHILS % 0.2 % (0.0-6.0); HEMATOCRIT 28.9 % (38.2-49.6); HEMOGLOBIN 8.4 g/dL (14.0-18.0); LYMPHOCYTES # (AUTO) 0.6 (1.0-3.2); LYMPHOCYTES % 3.2 % (18.0-39.1); MEAN CORPUSCULAR HEMOGLOBIN 21.6 pg (28-32); MEAN CORPUSCULAR HGB CONC 29.1 g/dL (31-35); MEAN CORPUSCULAR VOLUME 74.3 fL (81-99); MONOCYTES # (AUTO) 2.3 (0.2-0.8); MONOCYTES % 12.4 % (4.4-11.3); NEUTROPHILS # (AUTO) 15.5 (2.1-6.9); NEUTROPHILS % 83.1 % (38.7-80.0); PLATELET COUNT 303 x10e3/uL (140-360); RED BLOOD COUNT 3.89 x10e6/uL (4.3-5.7); RED CELL DISTRIBUTION WIDTH 24.1 % (11.7-14.4)
[2021-04-09 06:34] LABS: ANION GAP 15.2 mmol/L (8-16); CALCIUM 8.8 mg/dL (8.4-10.2); CREATININE, SERUM 1.62 mg/dL (0.72-1.25)
[2021-04-09 06:35] LABS: POTASSIUM 4.2 mmol/L (3.5-5.1)
[2021-04-09] MEDS: PANTOPRAZOLE SOD 40 MG TABEC PO SCH (08:06)
[2021-04-09] MEDS: LIDOCAINE 4% PATCH TP PRN (08:06)
[2021-04-09] MEDS: LOSARTAN POTASSIUM 25 MG TAB PO SCH (09:00)
[2021-04-09] MEDS: SIMVASTATIN 40 MG TAB PO SCH (09:00)
[2021-04-09] MEDS: METOPROLOL SUCCINATE 25 MG TAB XL PO SCH (09:00)
[2021-04-09] MEDS: IRON SUCROSE 100 MG in SODIUM CHLORIDE 0.9% 100 ML 100 ML IV SCH (09:25)
[2021-04-09 12:29] LABS: HEMATOCRIT 29.3 % (38.2-49.6); HEMOGLOBIN 8.5 g/dL (14.0-18.0); MEAN CORPUSCULAR HEMOGLOBIN 21.5 pg (28-32); MEAN CORPUSCULAR VOLUME 74.2 fL (81-99); PLATELET COUNT 376 x10e3/uL (140-360); RED BLOOD COUNT 3.95 x10e6/uL (4.3-5.7); RED CELL DISTRIBUTION WIDTH 24.4 % (11.7-14.4)
[2021-04-09 12:59] LABS: LYMPHOCYTES % (MANUAL) 4 % (19-48); MONOCYTES % (MANUAL) 7 % (3.4-9.0); NEUTROPHILS % (MANUAL) 89 % (40-74); PLATELET ESTIMATE ADEQUATE; PLATELET MORPHOLOGY COMMENT NORMAL
[2021-04-09 13:00] LABS: ANISOCYTOSIS MODERATE; ELLIPTOCYTE, RBC SLIGHT; HYPOCHROMASIA SLIGHT; POIKILOCYTOSIS SLIGHT; RBC MORPHOLOGY COMMENT ABNORMAL
[2021-04-09 13:01] LABS: OVALOCYTES FEW
[2021-04-09] MEDS ORDERED: SIMVASTATIN 40 MG TAB PO SCH (21:00)
[2021-04-09] MEDS: TRAMADOL HCL 50 MG TAB PO PRN (21:20)
[2021-04-10] VITALS (9 sets, daily range): BP systolic 100–114; BP diastolic 54–68
[2021-04-10 05:37] LABS: BASOPHILS % 0.2 % (0.0-1.0); EOSINOPHILS # (AUTO) 0.1 (0.0-0.4); EOSINOPHILS % 0.9 % (0.0-6.0); HEMOGLOBIN 7.9 g/dL (14.0-18.0); LYMPHOCYTES # (AUTO) 0.8 (1.0-3.2); LYMPHOCYTES % 4.9 % (18.0-39.1); MEAN CORPUSCULAR HEMOGLOBIN 21.6 pg (28-32); MEAN CORPUSCULAR HGB CONC 29.3 g/dL (31-35); MONOCYTES # (AUTO) 1.6 (0.2-0.8); MONOCYTES % 10.4 % (4.4-11.3); NEUTROPHILS # (AUTO) 12.9 (2.1-6.9); NEUTROPHILS % 82.9 % (38.7-80.0); PLATELET COUNT 327 x10e3/uL (140-360); RED BLOOD COUNT 3.65 x10e6/uL (4.3-5.7); RED CELL DISTRIBUTION WIDTH 24.7 % (11.7-14.4)
[2021-04-10 05:52] LABS: ANION GAP 12.9 mmol/L (8-16); CALCIUM 8.9 mg/dL (8.4-10.2); CREATININE, SERUM 1.34 mg/dL (0.72-1.25); POTASSIUM 3.9 mmol/L (3.5-5.1)
[2021-04-10] MEDS: LOSARTAN POTASSIUM 25 MG TAB PO SCH (08:30)
[2021-04-10] MEDS: PANTOPRAZOLE SOD 40 MG TABEC PO SCH (08:31)
[2021-04-10] MEDS: METOPROLOL SUCCINATE 25 MG TAB XL PO SCH (08:31)
[2021-04-10] MEDS: TRAMADOL HCL 50 MG TAB PO PRN (08:36)
[2021-04-10] MEDS: LIDOCAINE 4% PATCH TP PRN (08:36)
[2021-04-10] MEDS: IRON SUCROSE 100 MG in SODIUM CHLORIDE 0.9% 100 ML 100 ML IV SCH (09:41)
== END 2021-04-10 15:53 | disposition home or self-care (01) | DRG 299 ==
LOC: ER 17:38 → ERHOLD 19:01 → MED/SURG 20:51
PROVIDERS: ADMIT Internal Medicine; ATTEND Internal Medicine
PROC: 30233N1 Transfusion of Nonautologous Red Blood Cells into Peripheral Vein, Percutaneous Approach (ICD-10-PCS; 2021-04-03)
PROC: 0DBN8ZX Excision of Sigmoid Colon, Via Natural or Artificial Opening Endoscopic, Diagnostic (ICD-10-PCS; 2021-04-06)
PROC: 0D5K8ZZ Destruction of Ascending Colon, Via Natural or Artificial Opening Endoscopic (ICD-10-PCS; 2021-04-06)
PROC: 0DB78ZX Excision of Stomach, Pylorus, Via Natural or Artificial Opening Endoscopic, Diagnostic (ICD-10-PCS; principal; 2021-04-06 14:00)
PROC: 0DBK8ZX Excision of Ascending Colon, Via Natural or Artificial Opening Endoscopic, Diagnostic (ICD-10-PCS; 2021-04-06 14:00)
PROC: 06H03DZ Insertion of Intraluminal Device into Inferior Vena Cava, Percutaneous Approach (ICD-10-PCS; 2021-04-07)
DX: I82.411 Acute embolism and thrombosis of right femoral vein (principal); K55.21 Angiodysplasia of colon with hemorrhage; Z68.41 Body mass index [BMI] 40.0-44.9, adult; N17.9 Acute kidney failure, unspecified; K29.70 Gastritis, unspecified, without bleeding; K44.9 Diaphragmatic hernia without obstruction or gangrene; K64.8 Other hemorrhoids; Z88.1 Allergy status to other antibiotic agents; Z88.8 Allergy status to other drugs, medicaments and biological substances; F41.9 Anxiety disorder, unspecified; E78.5 Hyperlipidemia, unspecified; L40.9 Psoriasis, unspecified; E66.01 Morbid (severe) obesity due to excess calories; K21.9 Gastro-esophageal reflux disease without esophagitis; E11.9 Type 2 diabetes mellitus without complications; Z83.3 Family history of diabetes mellitus; Z82.49 Family history of ischemic heart disease and other diseases of the circulatory system; D51.9 Vitamin B12 deficiency anemia, unspecified; N18.9 Chronic kidney disease, unspecified; D72.829 Elevated white blood cell count, unspecified; N20.0 Calculus of kidney; D12.2 Benign neoplasm of ascending colon; D12.5 Benign neoplasm of sigmoid colon; Z20.822 Contact with and (suspected) exposure to COVID-19; Z79.84 Long term (current) use of oral hypoglycemic drugs; I12.9 Hypertensive chronic kidney disease with stage 1 through stage 4 chronic kidney disease, or unspecified chronic kidney disease
CPT/HCPCS: 36415; 37191; 43239; 45378; 74174; 74470; 80048; 80053; 80061; 82105; 82270; 82378; 82550; 82553; 82607; 82728; 82746; 82948; 83540; 83880; 84152; 84443; 84466; 84484; 85007; 85014; 85018; 85025; 85027; 85045; 85610; 85730; 86301; 86850; 86900; 86920; 87040; 88305; 88312; 93970; 93971; 94799; 96360; 99251; 99284; C1766; C1769; C1887; J1756; J1885; J1980; J2001; J2250; J2543; J3010; J3370; J3420; J7040; J7050; P9016; Q9967; U0002